=== PATIENT | male | born 1955 | race Caucasian/White ===

== ENCOUNTER 2020-10-25 16:10 | Emergency (ER) | payer OTHER ==
[~2020-10-25] VITALS: Ht 177.8 cm; Wt 124.3 kg
[2020-10-25] MEDS ORDERED: NORVASC 2.5 MG2.5 M1 PO (16:28)
[2020-10-25] MEDS ORDERED: LOPRESSOR50 MG PO (16:29)
[2020-10-25] MEDS ORDERED: ANORO ELLIPTA1 EACH INH (16:31)
[2020-10-25] MEDS ORDERED: PROAIR HFA8.5 GM INH (16:31)
[2020-10-25 16:59] LABS: ABSOLUTE BASOPHILS 0.1 thou/uL (0.0-0.2); ABSOLUTE EOSINOPHILS 0.4 thou/uL (0.0-0.7); ABSOLUTE MONOCYTES 0.7 thou/uL (0.0-1.2); ABSOLUTE NEUTROPHILS 6.5 thou/uL (1.6-8.1); BASOPHILS 1.1 %; EOSINOPHILS 4.2 %; HEMATOCRIT 45.2 % (42.0-52.0); LYMPHOCYTES 21.1 %; MCH 31.6 pg (26.0-34.0); MCHC 35.3 g/dL (28.0-37.0); MCV 89.4 fL (80.0-100.0); MPV 7.7 fl. (7.2-11.1); NUCLEATED RBCS 0 /100WBC; PLATELET COUNT* 290 thou/uL (150-400); POLYS 66.6 %; RBC 5.06 mil/uL (4.50-6.00); RDW-CV 12.5 % (10.5-14.5); WBC 9.7 thou/uL (4.0-11.0)
[2020-10-25 17:00] LABS: CALCIUM 9.8 mg/dL (8.5-10.1); CREATININE 1.1 mg/dL (0.6-1.3); POTASSIUM 3.6 mmol/L (3.5-5.1)
[2020-10-25 17:05] LABS: ALBUMIN 3.8 g/dL (3.4-5.0); TOTAL BILIRUBIN 0.6 mg/dL (<0.1-1.0); TOTAL PROTEIN 7.4 g/dL (6.4-8.2)
[2020-10-25 17:53] LABS: APTT 27.6 Seconds (25.0-31.3); INR 0.9
[2020-10-25 19:50] VITALS: BP 186/99
--- NOTE | 2020-10-26 09:27 | EKG ---
[place] [address] ELECTROCARDIOGRAM REPORT Name: TARAS HERNANDEZ Room: [facility]#: [id number] Admission: 10/25/20 Attend Phys: Discharge: 10/25/20 Date of : 59 Date of Service: 10/25/20 1646 Report #: [id number] THIS REPORT FOR: //name// [facility] ED Test Date: 2020-10-25 Test Time: 16:46:47 Pat Name: TARAS HERNANDEZ Department: Room: Gender: Washer Hand: : 1955 Requested By: Brandy Haley Order Number: [id number] MD: Ben David Measurements Intervals [place] Rate: 74 P: -3 GA: 171 QRS: -21 QRSD: 89 T: 49 QT: 412 QTc: 457 Interpretive Statements Sinus rhythm Probable left atrial enlargement Borderline left axis deviation No previous ECG available for comparison Electronically Signed On 10-26-2020 9:27:24 [employer] by Ben David [email or web address] <ELECTRONICALLY SIGNED> By: Ben David MD, [facility] 10/26/2027 45 Ben David MD, [facility] /EPI
== END 2020-10-25 19:50 | disposition home or self-care (01) ==
LOC: M.ERS 16:10
PROVIDERS: Physician Assistant
DX: L03.116 Cellulitis of left lower limb (principal); L03.115 Cellulitis of right lower limb; R60.0 Localized edema; R06.00 Dyspnea, unspecified; J44.9 Chronic obstructive pulmonary disease, unspecified; I10 Essential (primary) hypertension; E66.8 Other obesity; Z79.899 Other long term (current) drug therapy; Z68.39 Body mass index [BMI] 39.0-39.9, adult